=== PATIENT | male | born 1985 | race Caucasian/White ===

== ENCOUNTER 2018-07-26 23:44 | Emergency (ER) | payer BC ==
[2018-07-26 23:52] VITALS: BP 124/79
[2018-07-27] MEDS ORDERED: KETOROLAC TROMETHAMINE 60 MG/2 ML SDV IM ONE (01:05)
[2018-07-27] MEDS ORDERED: LIDOCAINE 5% (700 MG) TRANSDERMAL ADH..PATCH TP ONE (01:05)
--- NOTE | 2018-07-27 01:08 | ER Document Report ---
ED General - General Chief Complaint: Neck Pain < 24hrs old Stated Complaint: NECK/ARM PAIN Time Seen by Provider: 07/27/18 00:09 Notes: Patient is a 33-year-old male without chronic medical problems who presents with neck pain on the right side of his neck. States the pain started after he heard a "pop". He was lying in bed after having sexual intercourse when this started. He states that since that time he has had a constant, aching, spasming pain to the right side of his neck. He tried Tylenol at home with no relief. Moving the neck worsens the pain. He denies any associated weakness, numbness, headache or confusion. No history of similar symptoms in the past. He has not contacted his general doctor regarding today's concerns. TRAVEL OUTSIDE OF THE [place] IN LAST 30 DAYS: No Past Medical History - General Information source: Patient - Social History Smoking Status: Never Smoker Frequency of alcohol use: None Drug Abuse: None Lives with: Spouse/Significant other Family History: Reviewed & Not Pertinent Review of Systems - Review of Systems Notes: Constitutional: Negative for fever. HENT: Negative for sore throat. Eyes: Negative for visual changes. Cardiovascular: Negative for chest pain. Respiratory: Negative for shortness of breath. Gastrointestinal: Negative for abdominal pain, vomiting or diarrhea. Genitourinary: Negative for dysuria. Musculoskeletal: Positive for right-sided neck pain Skin: Negative for rash. Neurological: Negative for headaches, weakness or numbness. 10 point ROS negative except as marked above and in HPI. Physical Exam - Vital signs Vitals: Temp Pulse Resp BP Pulse Ox 97.6 F 71 18 124/79 97 07/26/18 23:51 07/26/18 23:51 07/26/18 23:51 07/26/18 23:51 07/26/18 23:51 Interpretation: Normal Notes: PHYSICAL EXAMINATION: GENERAL: Well-appearing, well-nourished and in no acute distress. HEAD: Atraumatic, normocephalic. EYES: Pupils equal round and reactive to light, extraocular movements intact, sclera anicteric, conjunctiva are normal. ENT: nares patent, oropharynx clear without exudates. Moist mucous membranes. NECK: Normal range of motion with some discomfort moving the neck toward the right, supple without lymphadenopathy, no midline spinal tenderness, step-offs or deformities LUNGS: Breath sounds clear to auscultation bilaterally and equal. No wheezes rales or rhonchi. HEART: Regular rate and rhythm without murmurs ABDOMEN: Soft, nontender, normoactive bowel sounds. No guarding, no rebound. No masses appreciated. EXTREMITIES: Normal range of motion, no pitting or edema. No cyanosis. NEUROLOGICAL: No focal neurological deficits. Moves all extremities spontaneously and on command. RMU motor and sensory distribution intact bilateral. 5 out of 5 biceps and triceps strength bilaterally. PSYCH: Normal mood, normal affect. SKIN: Warm, Dry, normal turgor, no rashes or lesions noted. Course - Re-evaluation Re-evalutation: 07/27/18 01:07 Patient presents with right-sided neck pain radiating to the right trapezius. Consistent with muscle spasm. Number the cervical spine tenderness, step-offs or deformities. No acute trauma. Patient is able to range the neck 45 degrees bilaterally. RMU motor and sensory distribution is intact bilaterally. 5 out of 5 biceps and triceps strength bilaterally. No indication for CT imaging of the cervical spine. I have emphasized the patient use of NSAIDs, heat, massage. At this time will discharge with return precautions and follow-up recommendations. Verbal discharge instructions given a the bedside and opportunity for questions given. Medication warnings reviewed. Patient is in agreement with this plan and has verbalized understanding of return precautions and the need for primary care follow-up in the next 24-72 hours. - Vital Signs Vital signs: Temp Pulse Resp BP Pulse Ox 97.6 F 71 18 124/79 97 07/26/18 23:51 07/26/18 23:51 07/26/18 23:51 07/26/18 23:51 07/26/18 23:51 Discharge - Discharge Clinical Impression: Neck pain on right side, Neck muscle spasm Condition: Good Disposition: HOME, SELF-CARE Additional Instructions: Your pain is related to spasm of your neck muscles and will take 6-8 weeks completely resolved. For your pain: Take naproxen 440 mg twice daily and acetaminophen 1000 mg every 6 hours as needed for pain. In addition to this, purchased the product that is sold [id number] cold Aspercreme with lidocaine. Apply to the affected area per bottle instructions. You should also apply heat to the area regularly using an electric heating plant pad. Return to the emergency department immediately if you develop weakness, loss of sensation, chest pain, shortness of breath, have worsening of your symptoms, or any other symptoms that are worrisome to you.
== END 2018-07-27 01:39 | disposition home or self-care (01) ==
LOC: ER 23:44
DX: M54.2 Cervicalgia (principal); R25.2 Cramp and spasm
CPT/HCPCS: 99283; 96372; J1885